=== PATIENT | female | born 1965 | race Two or more races ===

== ENCOUNTER 2022-10-27 | Inpatient (IN) | payer OTHER ==
[~2022-10-27] VITALS: Ht 165.1 cm; Wt 87.1 kg
[2022-10-27 01:05] VITALS: BP 135/63; TEMP 97.4; O2SAT 95
[2022-10-27] MEDS ORDERED: ACETAMINOPHEN 325 MG TABLET PO PRN (01:30)
[2022-10-27] MEDS ORDERED: ONDANSETRON HCL/PF 4 MG/2 ML VIAL IVP PRN (01:30)
[2022-10-27] MEDS ORDERED: MAGNESIUM HYDROXIDE 30 ML UDC PO PRN (01:30)
[2022-10-27] MEDS ORDERED: ZOLPIDEM TARTRATE 5 MG TABLET PO PRN (01:30)
[2022-10-27] MEDS ORDERED: HYDROCODONE/APAP 5/325MG TABLET PO PRN (01:30)
[2022-10-27] MEDS ORDERED: Z GUARD REMEDY 4 OZ OINT TP PRN (01:30)
[2022-10-27] MEDS ORDERED: MAG HYDROX/AL HYDROX/SIMETH 30 ML UDC PO PRN (01:30)
[2022-10-27] MEDS ORDERED: MORPHINE SULFATE INJ 2 MG/ML DISP.SYRIN IV PRN (01:30)
[2022-10-27] MEDS ORDERED: MEROPENEM 500 MG in IV NS 0.9% 50 ML IV ONE (03:00)
[2022-10-27] MEDS: ENOXAPARIN SODIUM 40 MG/0.4 ML DISP.SYRIN SQ SCH ×2 (03:01→20:38)
[2022-10-27] MEDS ORDERED: MEROPENEM 500MG/NS 50 ML PB IV ONE (03:03)
[2022-10-27] MEDS: IV NS 0.9% 1,000 ML IV PRN ×2 (03:07→18:55)
[2022-10-27 04:00] VITALS: BP 109/60; TEMP 98; O2SAT 99
[2022-10-27] MEDS ORDERED: LORAZEPAM 1 MG TABLET PO PRN (04:00)
[2022-10-27] MEDS ORDERED: MEROPENEM 500 MG in IV NS 0.9% 50 ML IV SCH (05:00)
[2022-10-27] MEDS: PANTOPRAZOLE 40 MG TABLET.DR PO SCH (08:19)
[2022-10-27 08:36] LABS: CALCIUM, SERUM 9.2 mg/dL (8.5-10.1); CREATININE 0.8 mg/dL (0.6-1.3); POTASSIUM 4.1 mmol/L (3.5-5.1)
[2022-10-27 08:42] LABS: ALBUMIN 3.4 g/dL (3.4-5.0); BILIRUBIN,TOTAL 0.4 mg/dL (0.2-1.0); TOTAL PROTEIN, SERUM 6.6 g/dL (6.4-8.2)
[2022-10-27] MEDS ORDERED: LETR2.5T8 PO (09:11)
[2022-10-27] MEDS ORDERED: TAMS-12 PO (09:11)
[2022-10-27] MEDS: MEROPENEM 1 G in IV NS 0.9% 100 ML IV SCH ×2 (12:17→20:38)
[2022-10-27 12:54] VITALS: BP 109/55; TEMP 98.7; O2SAT 100
[2022-10-27 20:21] VITALS: BP 118/60; TEMP 98.2; O2SAT 100
[2022-10-28 04:05] VITALS: BP 116/52; TEMP 97.9; O2SAT 100
[2022-10-28] MEDS: MEROPENEM 1 G in IV NS 0.9% 100 ML IV SCH ×5 (05:10→22:04)
[2022-10-28 06:50] LABS: BASOPHILS % (AUTO) 0.5 % (0.0-2.0); EOSINOPHILS % (AUTO) 4.8 % (0.0-6.0); HEMATOCRIT 28 % (33-45); HEMOGLOBIN 9.6 g/dL (11.5-14.8); LYMPHOCYTES # (AUTO) 1.1 K/uL (0.8-4.8); LYMPHOCYTES % (AUTO) 41.4 % (20.0-44.0); MEAN CORPUSCULAR HGB CONC 34 g/dl (31.0-36.0); MEAN CORPUSCULAR VOLUME 96 fL (82-100); MONOCYTES # (AUTO) 0.2 K/uL (0.1-1.30); MONOCYTES % (AUTO) 8.5 % (2.0-12.0); NEUTROPHILS # (AUTO) 1.2 K/uL (1.8-8.9); NEUTROPHILS % (AUTO) 44.8 % (43.0-81.0); PLATELET COUNT (AUTO) 151 K/uL (150-450); RED BLOOD CELL COUNT(AUTO) 2.93 MIL/uL (4.0-5.2); WHITE BLOOD COUNT (AUTO) 2.6 K/uL (4.3-11.0)
[2022-10-28 07:03] LABS: CALCIUM, SERUM 7.8 mg/dL (8.5-10.1); CREATININE 0.7 mg/dL (0.6-1.3); MAGNESIUM 1.7 mg/dL (1.8-2.4); PHOSPHORUS 2.5 mg/dL (2.5-4.9); POTASSIUM 3.2 mmol/L (3.5-5.1)
[2022-10-28 08:01] LABS: THYROID STIMULATING HORMONE 6.031 uIU/mL (0.358-3.74)
[2022-10-28] MEDS: LETROZOLE 2.5 MG TABLET PO SCH (09:16)
[2022-10-28] MEDS: TAMSULOSIN 0.4 MG CAP.SR.24H PO SCH (09:16)
[2022-10-28] MEDS: PANTOPRAZOLE 40 MG TABLET.DR PO SCH (09:16)
[2022-10-28] MEDS ORDERED: MAGNESIUM OXIDE 400 MG TABLET PO ONE (10:30)
[2022-10-28] MEDS ORDERED: POTASSIUM CHLORIDE 20 MEQ TAB.PRT.SR PO ONE (11:00)
[2022-10-28 11:09] LABS: BILIRUBIN,URINE NEGATIVE (NEGATIVE); COLOR,URINE YELLOW (YELLOW); LEUKOCYTE ESTERASE ,URINE NEGATIVE (NEGATIVE); NITRITE, URINE NEGATIVE (NEGATIVE); PH,URINE 6.5 (5.0-8.0); PROTEIN,URINE NEGATIVE (NEGATIVE); UGLUCOSE NEGATIVE (NEGATIVE); UROBILINOGEN,URINE 0.2 EU/dL (0.2)
[2022-10-28 12:00] VITALS: BP 132/69; TEMP 98.2; O2SAT 100
[2022-10-28 20:00] VITALS: BP 107/56; TEMP 98; O2SAT 100
[2022-10-28] MEDS: ENOXAPARIN SODIUM 40 MG/0.4 ML DISP.SYRIN SQ SCH (22:05)
[2022-10-29 04:00] VITALS: BP 102/56; TEMP 98.5; O2SAT 100
[2022-10-29 07:41] LABS: CALCIUM, SERUM 9.7 mg/dL (8.5-10.1); CREATININE 0.6 mg/dL (0.6-1.3); MAGNESIUM 2.3 mg/dL (1.8-2.4); PHOSPHORUS 3.8 mg/dL (2.5-4.9); POTASSIUM 5.1 mmol/L (3.5-5.1)
[2022-10-29 08:00] VITALS: BP 121/71; TEMP 98.1; O2SAT 100
[2022-10-29] MEDS: TAMSULOSIN 0.4 MG CAP.SR.24H PO SCH (08:03)
[2022-10-29] MEDS: LETROZOLE 2.5 MG TABLET PO SCH (08:03)
[2022-10-29] MEDS: PANTOPRAZOLE 40 MG TABLET.DR PO SCH (08:03)
[2022-10-29 08:04] LABS: BASOPHILS % (AUTO) 0.6 % (0.0-2.0); EOSINOPHILS % (AUTO) 5.8 % (0.0-6.0); HEMATOCRIT 42 % (33-45); HEMOGLOBIN 14.1 g/dL (11.5-14.8); LYMPHOCYTES # (AUTO) 1.5 K/uL (0.8-4.8); LYMPHOCYTES % (AUTO) 36.8 % (20.0-44.0); MEAN CORPUSCULAR HGB CONC 34 g/dl (31.0-36.0); MEAN CORPUSCULAR VOLUME 93 fL (82-100); MONOCYTES # (AUTO) 0.3 K/uL (0.1-1.30); MONOCYTES % (AUTO) 7.3 % (2.0-12.0); NEUTROPHILS % (AUTO) 49.5 % (43.0-81.0); PLATELET COUNT (AUTO) 193 K/uL (150-450); RED BLOOD CELL COUNT(AUTO) 4.47 MIL/uL (4.0-5.2)
== END 2022-10-29 13:30 | disposition home or self-care (01) | DRG 463 ==
LOC: MEDSG1 00:57
PROVIDERS: ADMIT Nurse Practitioner Acute Care; ATTEND Student in an Organized Health Care Education/Training Program
DX: N13.6 Pyonephrosis (principal); E87.0 Hyperosmolality and hypernatremia; Q60.3 Renal hypoplasia, unilateral; B96.89 Other specified bacterial agents as the cause of diseases classified elsewhere; Z16.12 Extended spectrum beta lactamase (ESBL) resistance; D72.819 Decreased white blood cell count, unspecified; E87.6 Hypokalemia; N26.1 Atrophy of kidney (terminal); Z90.10 Acquired absence of unspecified breast and nipple; Z85.3 Personal history of malignant neoplasm of breast
CPT/HCPCS: 36415; 76770-TC; 80048-TC; 80053-TC; 80061-TC; 83735-TC; 84100-TC; 84443-TC; 85025-TC; 86803; 87040-TC; 87081-TC; 87086-TC; 87806; A4223; G0378; J1650; J2185; J7030